=== PATIENT | female | born 1990 | race Caucasian/White ===

== ENCOUNTER 2018-01-21 16:33 | Inpatient (IN) | payer OTHER ==
[~2018-01-21] VITALS: Ht 157.5 cm; Wt 62.1 kg
== END 2018-01-25 15:06 | disposition home or self-care, planned readmission (81) | DRG 805 ==
LOC: LDR 16:33 → OB/GYN 01-24 18:19
PROC: 10E0XZZ Delivery of Products of Conception, External Approach (ICD-10-PCS; principal; 2018-01-24)
PROC: BY4CZZZ Ultrasonography of Second Trimester, Single Fetus (ICD-10-PCS; 2018-01-24)
PROC: 4A1HXCZ Monitoring of Products of Conception, Cardiac Rate, External Approach (ICD-10-PCS; 2018-01-24)
DX: O60.13X0 Preterm labor second trimester with preterm delivery third trimester, not applicable or unspecified (principal); O34.32 Maternal care for cervical incompetence, second trimester; Z37.0 Single live birth; Z3A.23 23 weeks gestation of pregnancy

== ENCOUNTER 2018-11-10 06:51 | Day surgery (SDC) | payer OTHER ==
[~2018-11-10 06:51] MED LIST: PRENATAL 19 TA1 EAC1 PO
== END 2018-11-10 15:50 | disposition home or self-care (01) ==
LOC: CIR.AMB 06:51 → OB/GYN 13:16 → CIR.AMB 13:27 → EDSTATUS 13:27 → CIR.AMB 15:50
DX: O34.32 Maternal care for cervical incompetence, second trimester (principal); Z3A.14 14 weeks gestation of pregnancy

== ENCOUNTER 2019-03-04 13:16 | Inpatient (IN) | payer OTHER ==
[~2019-03-04] VITALS: Ht 157.5 cm; Wt 73.9 kg
== END 2019-04-03 16:05 | disposition home or self-care (01) | DRG 831 ==
LOC: OBS/DEL 13:16 → OB/GYN 03-05 11:40 → LDR 03-05 11:40 → OB/GYN 03-05 20:24
PROVIDERS: ADMIT Obstetrics & Gynecology
PROC: 4A1HXCZ Monitoring of Products of Conception, Cardiac Rate, External Approach (ICD-10-PCS; 2019-03-05)
PROC: BT43ZZZ Ultrasonography of Bilateral Kidneys (ICD-10-PCS; principal; 2019-03-07)
PROC: BY4FZZZ Ultrasonography of Third Trimester, Single Fetus (ICD-10-PCS; 2019-03-24)
DX: O26.843 Uterine size-date discrepancy, third trimester (principal); O34.33 Maternal care for cervical incompetence, third trimester; O65.5 Obstructed labor due to abnormality of maternal pelvic organs; O60.03 Preterm labor without delivery, third trimester; O23.33 Infections of other parts of urinary tract in pregnancy, third trimester; O26.893 Other specified pregnancy related conditions, third trimester

== ENCOUNTER 2019-04-13 08:55 | Outpatient (CLI) | payer OTHER | END 2019-04-13 13:21 | disposition home or self-care (01) | LOC: OBS/DEL 08:55 | DX: O34.33 Maternal care for cervical incompetence, third trimester (principal) ==

== ENCOUNTER 2019-04-24 06:30 | Inpatient (IN) | payer OTHER ==
[~2019-04-24] VITALS: Ht 157.5 cm; Wt 78.9 kg
[2019-04-24] MEDS ORDERED: IRON236 MG PO (06:34)
[2019-04-26] MEDS ORDERED: FEOSOL325 MG PO (10:58)
== END 2019-04-26 13:27 | disposition home or self-care (01) | DRG 806 ==
LOC: OB/GYN 06:30 → LDR 06:30 → EDBD 06:30 → OB/GYN 19:30
PROVIDERS: ADMIT Obstetrics & Gynecology
PROC: 10E0XZZ Delivery of Products of Conception, External Approach (ICD-10-PCS; principal; 2019-04-24)
PROC: 0HQ9XZZ Repair Perineum Skin, External Approach (ICD-10-PCS; 2019-04-24)
PROC: 3E033VJ Introduction of Other Hormone into Peripheral Vein, Percutaneous Approach (ICD-10-PCS; 2019-04-24)
PROC: 10907ZC Drainage of Amniotic Fluid, Therapeutic from Products of Conception, Via Natural or Artificial Opening (ICD-10-PCS; 2019-04-24)
PROC: 4A1HXCZ Monitoring of Products of Conception, Cardiac Rate, External Approach (ICD-10-PCS; 2019-04-24)
DX: O70.0 First degree perineal laceration during delivery (principal); O41.03X0 Oligohydramnios, third trimester, not applicable or unspecified; Z37.0 Single live birth; Z3A.37 37 weeks gestation of pregnancy

== ENCOUNTER 2021-11-28 15:16 | Outpatient (CLI) | payer OTHER ==
[~2021-11-28 15:16] MED LIST changes: +FEOSOL325 MG PO; +IRON236 MG PO
== END 2021-11-28 16:32 | disposition home or self-care (01) ==
LOC: PRENATAL 15:16
PROVIDERS: ATTEND Obstetrics & Gynecology Maternal & Fetal Medicine
DX: O36.80X0 Pregnancy with inconclusive fetal viability, not applicable or unspecified (principal); Z36.0 Encounter for antenatal screening for chromosomal anomalies; Z14.8 Genetic carrier of other disease; O34.30 Maternal care for cervical incompetence, unspecified trimester; Z3A.11 11 weeks gestation of pregnancy

== ENCOUNTER 2022-01-25 12:50 | Outpatient (CLI) | payer OTHER | END 2022-01-25 14:30 | disposition home or self-care (01) | LOC: PRENATAL 12:50 | PROVIDERS: ATTEND Obstetrics & Gynecology Maternal & Fetal Medicine | DX: O35.9XX0 Maternal care for (suspected) fetal abnormality and damage, unspecified, not applicable or unspecified (principal); O34.30 Maternal care for cervical incompetence, unspecified trimester; Z3A.20 20 weeks gestation of pregnancy ==

== ENCOUNTER 2022-02-21 22:33 | Outpatient (CLI) | payer OTHER ==
[~2022-02-21] VITALS: Ht 157.5 cm; Wt 70.8 kg
== END 2022-02-22 15:06 | disposition home or self-care (01) ==
LOC: OBS/DEL 22:33
PROVIDERS: ATTEND Obstetrics & Gynecology
DX: O26.852 Spotting complicating pregnancy, second trimester (principal); Z3A.23 23 weeks gestation of pregnancy

== ENCOUNTER 2022-05-24 15:49 | Inpatient (IN) | payer OTHER ==
[~2022-05-24] VITALS: Ht 157.5 cm; Wt 78.0 kg
[2022-05-24] MEDS ORDERED: AMPICILLIN TRI500 MG PO (17:03)
[2022-05-27] MEDS ORDERED: IBUPROFEN800 MG PO (07:19)
== END 2022-05-27 14:06 | disposition home or self-care (01) | DRG 797 ==
LOC: LDR 15:49 → OB/GYN 15:49
PROVIDERS: ADMIT Obstetrics & Gynecology; ATTEND Obstetrics & Gynecology
PROC: 3E0P7VZ Introduction of Hormone into Female Reproductive, Via Natural or Artificial Opening (ICD-10-PCS; 2022-05-24)
PROC: 4A1HXCZ Monitoring of Products of Conception, Cardiac Rate, External Approach (ICD-10-PCS; 2022-05-24)
PROC: 10E0XZZ Delivery of Products of Conception, External Approach (ICD-10-PCS; 2022-05-25)
PROC: 0HQ9XZZ Repair Perineum Skin, External Approach (ICD-10-PCS; 2022-05-25)
PROC: 3E033VJ Introduction of Other Hormone into Peripheral Vein, Percutaneous Approach (ICD-10-PCS; 2022-05-25)
PROC: 0UB70ZZ Excision of Bilateral Fallopian Tubes, Open Approach (ICD-10-PCS; principal; 2022-05-26 07:30)
DX: O70.0 First degree perineal laceration during delivery (principal); O41.03X0 Oligohydramnios, third trimester, not applicable or unspecified; Z37.0 Single live birth; O99.824 Streptococcus B carrier state complicating childbirth; Z30.2 Encounter for sterilization; Z3A.37 37 weeks gestation of pregnancy; Z20.822 Contact with and (suspected) exposure to COVID-19